=== PATIENT | male | born 1975 | race Caucasian/White ===

== ENCOUNTER 2020-01-31 03:18 | Inpatient (IN) | payer OTHER ==
[~2020-01-31] VITALS: Ht 187.9 cm; Wt 106.7 kg
[2020-01-31] VITALS (9 sets, daily range): BP systolic 113–140; BP diastolic 54–86
--- NOTE | 2020-01-31 03:45 | NUR ---
Pt had small green emesis.
--- NOTE | 2020-01-31 04:02 | NUR ---
Pt also noted to be sweating and occasionaly shivering.
--- NOTE | 2020-01-31 04:04 | NUR ---
Pt states he is unable to void at this time.
--- NOTE | 2020-01-31 04:13 | NUR ---
Pt currently sleeping at this time.
[2020-01-31 04:15] LABS: BASO % 0.3 % (0.0-1.0); EOS % 0.3 % (1.0-4.0); HEMATOCRIT 49.2 % (42.0-52.0); LYMPH # 1.8 10*3/uL (1.3-4.4); LYMPH % 12.6 % (27.0-41.0); MEAN CELL VOLUME 86.6 fl (80.0-94.0); MEAN CORPUSCULAR HGB CONC 33.5 g/dl (33.0-37.0); MONO # 0.6 10*3/uL (0.1-1.0); MONO % 3.9 % (3.0-9.0); NEUT # 11.8 10*3/uL (2.3-7.9); NEUT % 82.5 % (47.0-73.0); PLATELET COUNT AUTOMATED 255 10*3/uL (130-400); RED BLOOD COUNT 5.68 10*6/uL (4.50-5.90); RED CELL DISTRI WIDTH 13.2 % (0-14.5); WHITE BLOOD COUNT 14.3 10*3/uL (4.8-10.8)
[2020-01-31 04:30] LABS: ALBUMIN 4.4 gm/dl (3.1-4.5); ALKALINE PHOSPHATASE 99 U/L (45-117); BUN 17 mg/dl (7-24); CHLORIDE 108 mmol/L (98-107); CREATININE 0.86 mg/dL (0.70-1.30); LIPASE 51 U/L (73-393); POTASSIUM 3.5 mmol/L (3.5-5.1); SGOT/AST 19 IU/L (3-35); SGPT/ALT 33 U/L (12-78); SODIUM 141 mmol/L (136-145); TOTAL PROTEIN 8.8 gm/dL (6.4-8.2)
[2020-01-31 04:31] LABS: ETHYL ALCOHOL < 3.0 mg/dl (<3)
--- NOTE | 2020-01-31 04:47 | NUR ---
in to see pt at this time.
--- NOTE | 2020-01-31 04:50 | NUR ---
Pt had another small green emesis and md aware.
[2020-01-31 05:17] LABS: BILIRUBIN NEGATIVE (NEGATIVE); BLOOD NEGATIVE (NEGATIVE); CLARITY CLOUDY (CLEAR); COLOR YELLOW (YELLOW); GLUCOSE NEGATIVE (NEGATIVE); KETONE 3+ (NEGATIVE); LEUKO ESTERASE NEGATIVE (NEGATIVE); NITRITE NEGATIVE (NEGATIVE); PH 8.5 (5.0-9.0); UROBILINOGEN 0.2 E.U./dl (0.2-1.0)
[2020-01-31 05:25] LABS: RBC 0-2 rbc/hpf (0-2); URINE AMPHETAMINES < 1000 (1000ng/ml); URINE BARBITURATES < 200 (200ng/ml); URINE BENZODIAZEPINES < 200 (200ng/ml); URINE CANNABINOIDS (THC) > 50 (50ng/ml); URINE COCAINE < 300 (300ng/ml); URINE METHADONE < 300 (300ng/ml); URINE OPIATES < 300 (300ng/ml); WBC 0-2 wbc/hpf (0-5)
--- NOTE | 2020-01-31 05:26 | NUR ---
In to see pt at this time and pt currently sleeping.
[2020-01-31 05:27] LABS: URINE PHENCYCLIDINE < 25 (25ng/ml)
--- NOTE | 2020-01-31 05:50 | NUR ---
Friends updated on pt status.
[2020-01-31] MEDS ORDERED: PEPCID20 MG PO (05:53)
[2020-01-31] MEDS ORDERED: ONDANSETRON4 MG SL (05:53)
[2020-01-31] MEDS ORDERED: PRILOSEC20 M1 PO (05:53)
--- NOTE | 2020-01-31 06:11 | NUR ---
Pt states he feels horrible at this time and has nasuea and pain is not better at this time.
--- NOTE | 2020-01-31 06:26 | NUR ---
Sabrina Salazar in to see pt at this time and aware of tp stating he feels worse.
--- NOTE | 2020-01-31 07:02 | NUR ---
Spoke with stated he signed pt out to at this time and pt does not have to be discharged.
--- NOTE | 2020-01-31 07:06 | NUR ---
Transfer of care to Lindsay benson.
--- NOTE | 2020-01-31 07:09 | NUR ---
LYING IN BED LEFT LATERAL, RESPS EASY.
--- NOTE | 2020-01-31 07:44 | NUR ---
DR NIELSONRES IN TO SEE PT AT THIS TIME.
--- NOTE | 2020-01-31 08:38 | NUR ---
PT CALLS OUT AND STATES "I'M SICKER THAN SHIT AND NONE OF THE MEDICATION IS HELPING ME". SITTING IN BEDSIDE CHAIR, IVF INFUSING. DR ZIMMERMAN MADE AWARE.
--- NOTE | 2020-01-31 08:49 | NUR ---
PT TO CT AT THIS TIME VIA BED.
--- NOTE | 2020-01-31 08:49 | NUR ---
SLEEPING IN BED, RESPS EASY.
--- NOTE | 2020-01-31 08:57 | NUR ---
BACK IN ROOM, RESTING WITH EYES CLOSED IN BED.
--- NOTE | 2020-01-31 09:03 | NUR ---
PT NOW TO CT
[2020-01-31 09:41] LABS: CPK 142 U/L (39-308)
[2020-01-31 09:42] LABS: TROPONIN I < 0.015 ng/ml (<0.045)
--- NOTE | 2020-01-31 10:00 | NUR ---
The assessment has been completed. NETTIE ANDRE Time: 1000 A 44 year old male admitted to under services of JAZLYN ELIZABETH DO. Pt. arrived via ambulatory from ER. Chief complaint: C/O ABD PAIN/N/V SINCE 2099 LAST NIGHT. OUT OF [place] R[place] ALL DAY.. DRANK 10-12 BEERS AND A FEW SHOTS. FELT SUDDEN SHARP PAIN IN EMBILICA L AREA.. NETTIE ANDRE
--- NOTE | 2020-01-31 10:55 | NUR ---
PT MEDICATED FOR C/O 5/10 ACHING ABD PAIN AND NAUSEA. WILL CONTINUE TO MONITOR FOR RELIEF. VOICES NO OTHER CONCERNS AT THIS TIME. RESPS EASY AND NON LABORED. CALL LIGHT WITHIN REACH.
--- NOTE | 2020-01-31 11:47 | NUR ---
MEDICATIONS APPEAR EFFECTIVE. PT SLEEPING COMFORTABLY IN ROOM. RESPS EASY AND NON LABORED. NO S/S OF DISTRESS NOTED. CALL LIGHT WITHIN REACH.
--- NOTE | 2020-01-31 14:34 | NUR ---
PTS CALLED. STATED SHE WAS IN THE ER AND HAD THE PTS CELL PHONE. TOOLD HER I WOULD GO DOWN AND GET IT FROM HER. UPDATED ON PLAN OF CARE. QUESTIONS ANSWERED. REQUESTING THAT BEFORE PT GETS DISCHARGED SHE BE CALLED BECAUSE THEY ARE NOT FROM AROUND HERE. WILL PASS ALONG
[2020-01-31] MEDS ORDERED: FLUOXETINE HCL60 MG PO (14:53)
[2020-01-31] MEDS ORDERED: WELLBUTRIN XL300 MG PO (14:53)
--- NOTE | 2020-01-31 15:42 | NUR ---
PT C/O PERSISTING ABD DISCOMFORT AND NAUSEA. MEDICATED PER ORDER. WILL MONITOR FOR RELIEF. RESPS EASY AND NON LABORED. CALL LIGHT WITHIN REACH.
--- NOTE | 2020-01-31 16:42 | NUR ---
MEDICATION APPEARS EFFECTIVE. PT SLEEPING. RESPS EASY AND NON LABORED. CALL LIGHT WITHIN REACH
--- NOTE | 2020-01-31 18:00 | NUR ---
PT UP TO TAKE A SHOWER.
--- NOTE | 2020-01-31 19:30 | NUR ---
REPORT RECEIVED FROM NETTIE GARRISON. [facility] [employer] AT THIS TIME. CALL LIGHT IN REACH
--- NOTE | 2020-01-31 20:45 | NUR ---
DR. BUTT NOTIFIED OF PT REQUEST FOR HOME MEDICATIONS. STATED SHE'D PUT THEM IN
--- NOTE | 2020-01-31 23:00 | NUR ---
PT WATCHING TV AT THIS TIME. IV FLUIDS INFUSING WITHOUT DIFFICULTY. CALL LIGHT IN REACH
[2020-02-01] VITALS: BP 97/61
--- NOTE | 2020-02-01 01:00 | NUR ---
SCHEDULED ZOFRAN APPEARS EFFECTIVE FOR NAUSEA, PT SLEEPING AT THIS TIME.
--- NOTE | 2020-02-01 05:05 | NUR ---
24 HR chart check completed.
[2020-02-01 06:29] LABS: HEMATOCRIT 43.7 % (42.0-52.0); MEAN CELL VOLUME 87.2 fl (80.0-94.0); MEAN CORPUSCULAR HGB 29.3 pg (27.0-31.0); MEAN CORPUSCULAR HGB CONC 33.6 g/dl (33.0-37.0); MEAN PLATELET VOLUME 11.6 fl (9.6-12.3); PLATELET COUNT AUTOMATED 230 10*3/uL (130-400); RED BLOOD COUNT 5.01 10*6/uL (4.50-5.90); RED CELL DISTRI WIDTH 13.4 % (0-14.5); WHITE BLOOD COUNT 17.4 10*3/uL (4.8-10.8)
[2020-02-01 07:01] LABS: ALBUMIN 3.5 gm/dl (3.1-4.5); ALKALINE PHOSPHATASE 80 U/L (45-117); BUN 11 mg/dl (7-24); CHLORIDE 107 mmol/L (98-107); CHOLESTEROL 187 mg/dL (<200); CREATININE 0.58 mg/dL (0.70-1.30); HDL CHOLESTEROL 48 mg/dl (40-60); LDL CHOLESTEROL 113 mg/dL (9-159); POTASSIUM 3.1 mmol/L (3.5-5.1); SGOT/AST 12 IU/L (3-35); SGPT/ALT 23 U/L (12-78); SODIUM 138 mmol/L (136-145); TOTAL PROTEIN 7.3 gm/dL (6.4-8.2); TRIGLYCERIDES 129 mg/dl (<150); VLDL CHOLESTEROL 26 mg/dL (6-40)
[2020-02-01 07:07] LABS: PLATELET SUFFICIENCY NORMAL (NORMAL); TOTAL CELLS COUNTED 100 #CELLS
[2020-02-01 07:36] LABS: VITAMIN D, 25-HYDROXY 36.7 ng/mL (30-100)
[2020-02-01 08:00] VITALS: BP 126/70
--- NOTE | 2020-02-01 09:00 | NUR ---
Escalator Operator in to talk to patient. Patient states lives at home with . There are no steps in the home. Physician: salome medina Pharmacy: [facility] Home health services: none Patient's level of ADLs: INDEPENDENT Patient has working utilities: all working DME: none Follow-up physician's appointment after d/c: will be made by hospitalist nurse director upon discharge Does patient want to access PORTAL?: no Discharge plan discussed with patient, he stated he lives at home with , he is independent in adls and ambulation, drives and works, he states he will return home when medically stable and denies any home needs, case management will follow. CLAUDE SIDHU
[2020-02-01 12:00] VITALS: BP 124/90
--- NOTE | 2020-02-01 15:33 | NUR ---
Discharge instructions reviewed with patient. Patient receptive and verbalizes understanding. Follow-up care arranged. Written instructions given to patient. PATIENT DISCHARGED TO [facility], AMBULATORY, FOR TRANSPORT HOME BY PRIVATE VEHICLE WITH HIS . [facility]
== END 2020-02-01 16:41 | disposition home or self-care (01) | DRG 392 ==
LOC: ED 03:18 → EDHOLD 09:35 → 4E 09:35
PROVIDERS: Emergency Medicine; Student in an Organized Health Care Education/Training Program; ADMIT Internal Medicine
DX: K29.20 Alcoholic gastritis without bleeding (principal); E87.2 Acidosis; R65.10 Systemic inflammatory response syndrome (SIRS) of non-infectious origin without acute organ dysfunction; K21.9 Gastro-esophageal reflux disease without esophagitis; D72.9 Disorder of white blood cells, unspecified; R73.9 Hyperglycemia, unspecified; E83.41 Hypermagnesemia; F12.188 Cannabis abuse with other cannabis-induced disorder; E87.6 Hypokalemia; R82.4 Acetonuria; F32.9 Major depressive disorder, single episode, unspecified; F17.210 Nicotine dependence, cigarettes, uncomplicated; Z71.6 Tobacco abuse counseling; Z79.899 Other long term (current) drug therapy